=== PATIENT | female | born 1945 | race Caucasian/White ===

== ENCOUNTER 2021-04-14 05:14 | Observation (INO) ==
--- NOTE | 2021-03-16 14:48 | PAT Medication Instructions ---
Medication Instructions Date of Service March 16, 2021 Home Medications cholecalciferol (vitamin D3) 25 mcg (1,000 unit) capsule 25 mcg PO DAILY mecobalamin (vitamin B12) 1,000 mcg chewable tablet 1,000 mcg PO DAILY multivitamin 1 tab PO DAILY coQ10 (ubiquinol) 100 mg PO HS fluorouracil [Efudex] 1 applic TOPICAL DAILY PRN levothyroxine 12.5 mcg PO DAILY [id number] [Immune Support] 1 tab PO DAILY omega-3 fatty acids [[place] 3] 1,000 mg PO DAILY rosuvastatin 40 mg PO QPM zinc 1 tab PO DAILY STOP taking 2 weeks before surgery coQ10 (ubiquinol) 100 mg PO HS [id number] [Immune Support] 1 tab PO DAILY omega-3 fatty acids [[place] 3] 1,000 mg PO DAILY STOP taking 24 hours before surgery fluorouracil [Efudex] 1 applic TOPICAL DAILY PRN DO NOT take the morning of surgery cholecalciferol (vitamin D3) 25 mcg (1,000 unit) capsule 25 mcg PO DAILY mecobalamin (vitamin B12) 1,000 mcg chewable tablet 1,000 mcg PO DAILY multivitamin 1 tab PO DAILY zinc 1 tab PO DAILY Take morning of surgery With a small sip of water, OTHERWISE NOTHING TO EAT OR DRINK AFTER MIDNIGHT: levothyroxine 12.5 mcg PO DAILY Take evening before surgery rosuvastatin 40 mg PO QPM Other Notes If you have any questions please call us at [phone] or [phone] or [phone] or [phone]
--- NOTE | 2021-03-17 10:12 | Anesthesiology Consultation ---
Date of Service March 17, 2021 Assessment & Plan (1) Encounter for pre-operative examination: Chart Review Chart Review: Acceptable Risk for Surgery (pending cardio records from [place] (will attempt to get last cardio note, most recent carotid doppler and ECHO) and preop Covid testing results ) and Patient seen in Pre Admission Testing Pt also follows with cardio in [place], [place]- Dr Emely Forbes with [facility]. Will fax for last office note (preop risk assessment), ECHO, carotid doppler Per patent at PAT qing on 03/17/21= states Dr. Forbes felt patient is stable to proceed with surgery. Had ECHO in April 2019- demonstrated normal LV systolic function and no valve disease. If experiences atrial tachycardia at time of surgery- additional dose of beta anna could be given. Pt was to start on Metoprolol for extra heart beats but has not yet started medication- encouraged patient to discuss with cardio. (will attempt to get cardio note) Per PAT appointment on 03/17/2021, patient resides in [facility]. Local travel only. No known Covid infection past 90 days. Patient is vaccinated for Covid. No known Covid positive contacts or Covid related symptoms. Preop Covid testing scheduled 04/10/21= will await results. Educated on importance of self quarantining, social distancing and wearing mask in public both for the patient after Covid testing done Pt last seen by [facility] 02/18/21= Per cardiology note patient with history of mild nonobstructive carotid artery stenosis. Patient presents for routine cardiology appointment also follows with agricultural equipment sales manager in [place]. Patient considering right hip surgery in the future. Dyslipidemiabetter controlled on high intensity statin. Said he has been initiated by agricultural equipment sales manager in [place] to optimize LDL. Carotid artery stenosisasymptomaticmild nonobstructive per previous report. Palpitationschronic and stablenot overly bothersome to patient. BPacceptable in office. Murmurfaint systolic murmur heard on exam todaychronic per patienthad echo on 04/13/2019 demonstrating mild TR per prior agricultural equipment sales manager. Follow-up in 6 months. Teaching & Discussion Pre-Anesthesia Teaching/Discussion Notes: Instructed NPO after midnight before surgery,except medications with 15 cc of water. Medication instructions provided according to the PAT guidelines. History Surgery Operation Date: 04/14/21 08:50 Proposed Procedures p Right Total Hip Arthroplasty - Dae Ruiz MD Height/Weight Height: 5 ft 4 in Weight: 60.1 kg Allergies Allergy/AdvReac Type Severity Reaction Status Date / Time No Known Drug Allergies Allergy Verified 03/16/21 13:30 Medications Home Medications Medication Instructions Recorded Confirmed Last Taken cholecalciferol (vitamin D3) 25 25 mcg PO DAILY 07/25/20 03/16/21 Unknown mcg (1,000 unit) capsule mecobalamin (vitamin B12) 1,000 1,000 mcg PO DAILY 07/25/20 03/16/21 Unknown mcg chewable tablet multivitamin 1 tab PO DAILY 07/25/20 03/16/21 Unknown coQ10 (ubiquinol) 100 mg PO HS 03/16/21 03/16/21 Unknown fluorouracil [Efudex] 1 applic TOPICAL DAILY PRN 03/16/21 03/16/21 Unknown levothyroxine 12.5 mcg PO DAILY 03/16/21 03/16/21 Unknown [id number] 1 tab PO DAILY 03/16/21 03/16/21 Unknown [Immune Support] omega-3 fatty acids [[place] 3] 1,000 mg PO DAILY 03/16/21 03/16/21 Unknown rosuvastatin 40 mg PO QPM 03/16/21 03/16/21 Unknown zinc 1 tab PO DAILY 03/16/21 03/16/21 Unknown Past Medical History Medical History (Updated 03/17/21 @ 16:59 by Debbie Escalante PA-C) Cardiac murmur Faint systolic murmur--per Dr. Dyson. Per Dr. Dyson's note "Has had echo on 04/13/2019 demonstrating mild tricuspid regurgitation per prior agricultural equipment sales manager"---also following with agricultural equipment sales manager in [place] (Dr. Emely Forbes) Carotid artery stenosis Non obstructive per 02/18/21 Dr. Dyson note Herniated disc History of anesthesia reaction difficulty waking History of basal cell carcinoma (BCC) s/p removal - no other treatments needed Hyperlipidemia Hypothyroidism Nausea and vomiting after administration of anesthetic agent Sensorineural hearing loss (SNHL) of both ears Exercise / Class Metabolic Activity II 4-5 Yardwork/Stairs/Walk up hill (one flight of stairs - no chest pain or SOB) Past Family History Family History Mother Breast cancer Father Myocardial infarction Other No family history of adverse response to anesthesia Denies family history of Ovarian cancer Prostate cancer Colorectal cancer Past Surgical History Surgical History History of bilateral cataract extraction History of breast biopsy benign History of colonoscopy History of Mohs micrographic surgery for skin cancer History of wisdom tooth extraction S/P tonsillectomy Past Anesthesia History No Hx of Anesthesia Complications (with exception to slow to wake- no reintubation or ICU stay; PONV ) and No Family Hx of Anesthesia Complications History of PONV No Hx of Motion Sickness and History of PONV Social History Smoking Status: Never smoker Do You Dip or Chew Tobacco: No Hx Alcohol Use: Yes Alcohol type: wine alcohol intake frequency: holidays/special occasions only Hx Substance Use: No substance use type: does not use Review of Systems Occ palpitations Patient denies chest pain, shortness of breath, dyspnea on exertion, reflux, cough, wheezing. No hx of seizures, stroke, MT, apnea/snoring. No hx of blood clots or blood transfusions Physical Exam Vital Signs VITALS BP 131/80 P 68 TEMP 98.4 SP02 99% RESP 16 Constitutional no acute distress ENMT Mouth: no TMJ clicking Thyromental Distance: > or= 3.5 Finger Breadths (3.5) Mallampati Class: I Neck neck extension not limited Respiratory normal respiratory effort; no respiratory distress Auscultation: lungs clear to auscultation bilaterally; no wheezes Cardiovascular Rate/Rhythm: regular rate and regular rhythm Heart Sounds: no murmur Vessels: + carotid bruit (faint bruit bilaterally ) Musculoskeletal Spine: no pain with cervical ROM Extremities: extremities normal to inspection Psychiatric Orientation: alert Lab Results Anesthesia Preop Results Results Anesthesia Widget: WBC 7.30 K/uL (4.8-10.8) 03/17/21 Hgb 13.2 g/dL (12.0-16.0) 03/17/21 Hct 39.3 % (37-47) 03/17/21 Plt 270 K/uL (130-400) 03/17/21 Na 136 mmol/L (136-145) 03/17/21 K 4.9 mmol/L (3.5-5.1) 03/17/21 Cl 107 mmol/L (98-107) 03/17/21 CO2 25 mmol/L (21-32) 03/17/21 BUN 12 mg/dl (7-18) 03/17/21 Creat 0.61 mg/dl (0.6-1.2) 03/17/21 Glucose Level 106 mg/dl (70-99) H 03/17/21 PT 10.3 Seconds (9.0-12.0) 03/17/21 PTT 26.4 Seconds (21.0-31.0) 03/17/21 INR 1.0 (0.9-1.1) 03/17/21 Blood Type O Positive 03/17/21 Antibody Screen NEGATIVE 03/17/21 Testing Laboratory Results 02/26/2021 = UA: Hemolyzed trace urine blood, negative bacteria URINE CULTURE: No growth Electrocardiogram Date: 07/25/20 Sinus rhythm at 63 bpm Chest X-Ray Date: 03/17/21 Findings: + NAD Lung volumes are normal. A 1.3 cm calcified left lower lung nodule is benign. There is no pneumothorax or pleural effusion. Cardiac size is normal. Mediastinal contours are normal. There is no evidence for pulmonary edema.
--- NOTE | 2021-04-12 10:17 | History and Physical Report ---
DATE OF ADMISSION: 04/14/2021 CHIEF COMPLAINT: Persistent right hip and groin pain. HISTORY OF PRESENT ILLNESS: A 75-year-old female who presents for treatment of her right hip. She h as a fairly long history of right hip pain and discomfort, it has gradually gotten worse over time. She has been treated conservatively up in [place] where she used to live, was actually scheduled for amador rgery up there, but canceled for unclear reasons. She continued to be bothered by this hip pain. It has gradually progressed over the past 3 to 4 years. She has been through extensive conservative tr eatment including medicines, which provided fairly minimal relief. Apparently, her father is a physi katalina and ____, she is concerned about the anesthesia issues. She has difficulty doing a lot of activ ities. She cannot walk any long distances. Pain is mostly in her groin and thigh. She has a limite d walking tolerance. She would really like to have her hip fixed now. PAST MEDICAL HISTORY: 1. Elevated cholesterol. 2. Irregular heart palpitations. 3. Hypothyroidism. 4. Skin cancer. PAST SURGICAL HISTORY: Includes tonsillectomy. ALLERGIES: None. CURRENT MEDICATIONS: 1. Synthroid. 2. Rosuvastatin. SOCIAL HISTORY: Significant for a 75-year-old female. She is . She moved here from [place]. FAMILY HISTORY: Noncontributory. REVIEW OF SYSTEMS: Negative for diabetes, neurologic problem, vascular problem, or bleeding disorder s. No chest pain or shortness of breath. No history of DVT or PE. No known bleeding problems. PHYSICAL EXAMINATION: GENERAL: Shows a pleasant middle-aged female. Looks to be in pretty good health. HEENT: Benign. NECK: Supple, with no lymphadenopathy. LUNGS: Clear to auscultation. HEART: Has a regular rate and rhythm. ABDOMEN: Soft, nontender, nondistended. EXTREMITIES: Grossly neurovascularly intact except as follows: Examination of the right hip reveale d a patient who walks with a bit of a limp. She is about 0.5 cm to 1 cm short on this side compared to the left. She has stiffness with hip motion. I can internally rotate to neutral at best. This r e-creates pain. Negative straight leg raise. X-RAYS: X-rays of the right hip were reviewed. It shows advanced right hip DJD. She has complete l oss of superior joint space. She has got flattening of the femoral head. She has cystic changes on both sides of the joint. Fairly significant osteophytes around the femoral head. ASSESSMENT: A 75-year-old female with advanced right hip degenerative joint disease. She has failed conservative measures. She was actually scheduled for surgery elsewhere up in [place], but canceled f or unclear reasons. She would now like to have her hip fixed. PLAN: We are going to take her to the operating room and do right total hip replacement. The risks and benefits of this procedure were explained to the patient including but not limited to DVT, PE, de ath, infection, neurological injury, vascular injury, bleeding problem, pain, limited range of motion , stiffness, failure to relieve her symptoms, incomplete relief of symptoms, need for further surgery in the future, fracture, leg length inequality, nerve palsy, etc. The patient understands and charan es to proceed. Informed consent was obtained. I spent quite a bit of time answering questions for her. She is pretty apprehensive and certainly un derstandable. She did see the food service associate and has been cleared by cardiology. We will proceed with a right total hip replacement. Job ID: [id number]
[2021-04-14] MEDS ORDERED: TRANEXAMIC ACID 1,000 MG **IV Pre-op IV SCH (06:00)
[2021-04-14] MEDS ORDERED: GABAPENTIN 300 MG CAP PO SCH (06:00)
[2021-04-14] MEDS ORDERED: LR 60ML/HR IV SCH (06:00)
[2021-04-14] MEDS ORDERED: FAMOTIDINE 20 MG TAB PO SCH (06:00)
[2021-04-14] MEDS ORDERED: ACETAMINOPHEN 500 MG TAB PO SCH (06:00)
[2021-04-14] MEDS ORDERED: LR 500ML BOLUS, THEN 15ML/HR IV SCH (06:00)
[2021-04-14] MEDS ORDERED: ceFAZolin 2000MG 2,000 MG/15 ML SYR IV SCH (06:00)
[2021-04-14] MEDS ORDERED: BUPIVACAINE 0.5 % 5 MG/1 ML PF 10ML VIAL ONE (06:15)
[2021-04-14] MEDS ORDERED: EPINEPHrine INJ 1 MG/ML AMP ONE (06:38)
[2021-04-14] MEDS ORDERED: BUPIVACAINE 0.5 % 5 MG/1 ML MPF 30ML VIAL ONE (06:39)
[2021-04-14] MEDS ORDERED: MIDAZOLAM HCL 1 MG/ML 2ML VIAL ONE (06:42)
[2021-04-14] MEDS ORDERED: fentaNYL citrate 100 MCG/2 ML VIAL ONE (06:42)
[2021-04-14] MEDS ORDERED: MoRPHine SULFATE PF 1 MG/ML 10 ML AMP/VIAL ONE (06:44)
--- NOTE | 2021-04-14 06:57 | History & Physical Bridge Note ---
Date of Service April 14, 2021 History & Physical Bridge Note I have examined the patient, reviewed the History & Physical and in the interval since the performance of the History & Physical I have noted the following changes of clinical significance: no changes noted
[2021-04-14] MEDS ORDERED: ONDANSETRON INJ 2 MG/ML 2 ML VIAL IV PRN (07:02)
[2021-04-14] MEDS ORDERED: KETOROLAC 30 MG/ML VIAL IV PRN (07:02)
[2021-04-14] MEDS ORDERED: LACTATED RINGER'S 500 ML IV PRN (07:02)
[2021-04-14] MEDS ORDERED: NALOXONE HCL 0.4 MG/1 ML VIAL/CARP IV PRN ×2 (07:02→10:58)
[2021-04-14] MEDS ORDERED: PROMETHAZINE HCL 6.25 MG in SODIUM CHLORIDE 0.9% 50 ML IV PRN (07:02)
[2021-04-14] MEDS ORDERED: NALOXONE HCL 0.08 MG in SYRINGE 1.8 ML IV PRN (07:02)
[2021-04-14] MEDS ORDERED: diphenhydrAMINE 50 MG/ML VIAL IV PRN (07:02)
[2021-04-14] MEDS ORDERED: MoRPHine SULFATE PF 1 MG/ML 10 ML AMP/VIAL INT SPINAL ONE (07:02)
[2021-04-14] MEDS ORDERED: ePHEDrine sulfate 50 MG/ML AMP IV PRN (07:02)
[2021-04-14] MEDS ORDERED: NALBUPHINE HCL INJ 10 MG/ML AMP IV PRN (07:02)
[2021-04-14] MEDS ORDERED: MEPERIDINE HCL 25 MG/ML CARP/VIAL IV PRN (07:02)
[2021-04-14] MEDS ORDERED: NALOXONE HCL 1 MG in SODIUM CHLORIDE 0.9% 1000ML 1,000 ML IV PRN (07:02)
[2021-04-14] MEDS ORDERED: DC INTRASPINAL MORPHINE SCH (07:15)
[2021-04-14] MEDS ORDERED: SODIUM CHLORIDE 0.9% 1000ML 1,000 ML IV SCH (07:15)
[2021-04-14] MEDS ORDERED: NO NARCOTICS OR SEDATIVES SCH (07:15)
[2021-04-14] MEDS ORDERED: ONDANSETRON INJ 2 MG/ML 2 ML VIAL ONE (07:18)
[2021-04-14] MEDS ORDERED: ePHEDrine sulfate 50 MG/ML SYR ONE (08:15)
[2021-04-14] MEDS ORDERED: PHENYLEPHRINE 100MCG/ML 5ML SYR ONE (08:15)
--- NOTE | 2021-04-14 09:09 | Operative Report ---
Post Operative Report Pre & Post Diagnosis Operation Date: 04/14/21 07:00 Pre-Op Diagnosis: Right Hip Osteoarthritis Post-Op Diagnosis: Right Hip Osteoarthritis I identified the patient and participated in the time-out.: Yes Procedure Operation Date: 04/14/21 07:00 Actual Procedures p Uncemented Right Total Hip Arthroplasty(Right) - Dae Ruiz MD Surgeon Dae Ruiz MD Primary Care Provider Jorge, PAC Estimated Blood Loss 200 Findings Consistent with Post-Op Diagnosis Operative findings were advanced right hip DJD. She had a moderate-sized joint effusion with grade 4 [id number] disease of the femoral head and acetabulum. She had a moderate-sized anterior and medial acetabular osteophyte. Fluids 1700 cc. Specimens Right femoral head sent for pathology. Drains None. Anesthesia Type Spinal MAC Complications none Disposition Accompanied Patient To Recovery: Yes Indications Patient is a 75-year-old female has had a several year history of increasing right hip pain discomfort describes gotten worse over time. She is actually scheduled for hip replacement surgery elsewhere and then moved to this area and canceled. She been waiting for the Covid epidemic to be over. She now elect proceed with a total hip arthroplasty. She failed all conservative measures. Description of Procedure Operative implants consist of: 1. Biomet G7 size 50 mm acetabular shell. 2. 6.5 cancellous acetabular screws 135 mm length 1 to 20 mm length. 3. [place] hole nature photographer. 4. Highly cross-linked polyethylene liner with a 50 mm outer diameter 36 mm inner diameter. 5. DePuy Cor[place] size 11 KLA femoral stem 6. +5/36 mm ceramic articular ball. The patient was taken to the operating, identified, and placed on the operating table supine position but a contractors were properly padded. IV antibiotics tried by anesthesia team. A spinal anesthetic had been implemented holding area. Jones catheter was placed in a sterile fashion. The patient was then placed in the left lateral cubitus position. Rolls placed. Stulberg hip positioner was used for positioning. The right hip and leg were then prepped and draped in usual sterile fashion. Posterior lateral approach to the right hip was then performed through a curvilinear incision centered over the greater trochanter. Sharp dissection was carried through subcutaneous tissue down of the IT band gluteal fascia the IT band gluteal fascia incised longitudinally in line with skin incision. The underlying greater bursa was excised. The piriformis and external rotators were tagged and taken off the posterior aspect hip joint capsule. Great care was taken throughout the procedure protect the sciatic nerve at all times. Posterior capsulotomy was then performed leaving a large flap for later repair. Hip was internally rotated and dislocated. Femoral neck osteotomy cut was made with Final Cut about 10 mm above the lesser trochanter. Femoral head was removed and sent for pathology. The femur was retracted anteriorly. Attention drawn the acetabulum. The acetabular labrum was excised. The pulvinar fat was excised. Sequential reaming the acetabular was then performed again with size 43 and progressing up to 49. I did reamed just a little bit with a 50 reamer and then placed a 50 mm cup. We placed this in about 40 degrees lateral opening and 20 degrees of anteversion. It was fixed with two 6.5 cancellous acetabular screws. A trial liner was placed. An anterior osteophyte was removed. Attention drawn the femur. Proximal femur was entered with a cookie-cutter followed by canal finder. I then broached begin the size 8 and progressing up to 11. We got excellent fit and 11. I then trialed the hip and the +5 articular ball seem to recreate soft tissue tension appropriately and leg lengths are equal. Hip was stable in full extension and external rotation and flexion to 90 degrees internal rotation about [address] I elect to place these implants. All trial implants were removed. An apex hole nature photographer was placed. Highly cross-linked polyethylene liner was placed. A DePuy size 11 KLA femoral stem was impacted in position. +5/36 mm ceramic articular ball was placed. Hip was located once again found to be stable. Attention drawn toward closing. Nupathe wounds irrigated scope soft pulsatile lavage solution. I did inject locally with the 60 cc of half percent Marcaine with epinephrine. The posterior capsule and external rotators then repaired through drill holes in the posterior trochanter with #2 Tycron suture. The IT band gluteal fascia then closed in 1 PDS suture in running fashion the subcutaneous tissue was closed with 2 layers with a deep layer #1 Vicryl suture subcutaneous tissues with 2-0 Dexon suture in a buried interrupted fashion. Skin was closed skin jarret. Leg was then cleaned and dried and sterile dressing both Xeroform, 4 x 4's, sterile ABD pad and foam tape was applied. Patient then transferred to the recovery room in stable condition. Patient tolerated the procedure well and there were no complications. All needle and sponge counts were correct at the end the operation. Romario Noriega PA-C, my physician printing bindery assistant for the case, was present for the entire procedure. His assistance was required for proper patient positioning, prepping and draping, surgical exposure, retraction, performing the technical details of the operation, placement of the implants, closure of the wound, placement of the sterile bandage. I attest to the content of the Intraoperative Record and any orders documented therein. Any exceptions are noted below.
--- NOTE | 2021-04-14 09:23 | XRay Report ---
AP PELVIS, CROSSTABLE LATERAL RIGHT HIP History: Right total hip arthroplasty. Degenerative arthritis. Postop. FINDINGS: The patient is status post a right total hip arthroplasty. The hardware is intact. No fract ure or dislocation. Skin jarret are in place. IMPRESSION: Right total hip arthroplasty. No evidence for hardware complication ACT 112: Negative or not required by law. Electronically signed by: Jorge Luis Soriano M.D. 04/14/2021 9:22 AM
--- NOTE | 2021-04-14 10:17 | Anesthesiology Progress Note ---
Date of Service April 14, 2021 Anesthesia Post Procedure Vital Signs Vital Signs: Temp Pulse Pulse Resp BP Pulse Ox 04/14/21 10:10 67 18 105/52 L 100 04/14/21 10:00 68 20 97/52 L 100 04/14/21 09:50 67 20 102/51 L 93 04/14/21 09:40 74 20 108/57 L 93 04/14/21 09:30 72 18 102/51 L 93 04/14/21 09:20 73 25 H 95/48 L 95 04/14/21 09:10 68 14 93/48 L 99 04/14/21 09:00 70 14 100/51 L 100 04/14/21 08:53 36.0 C L 77 16 96/44 L 98 04/14/21 06:20 36.5 C 71 18 147/77 H 99 04/14/21 05:49 36.7 C 73 18 148/72 H 98 Transfer of Care Handoff Completed per policy Notes Mental Status: alert / awake / arousable Patient Amnestic to Procedure: Yes Nausea / Vomiting: adequately controlled Pain: adequately controlled Airway Patency, RR, SpO2: stable & adequate BP & HR: stable & adequate Hydration State: stable & adequate Anesthetic Complications: no major complications apparent
[2021-04-14] MEDS ORDERED: [UNRECOGNIZED DRUG - OTHER] PO SCH (10:58)
[2021-04-14] MEDS ORDERED: bisacodyL 10 MG SUPP PR PRN (10:58)
[2021-04-14] MEDS ORDERED: MAGNESIUM HYDROXIDE SUSP 30 ML UDC PO PRN (10:58)
[2021-04-14] MEDS ORDERED: NON-FORMULARY MEDICATION (Zinc Tablet,Chewable) PO SCH (10:58)
[2021-04-14] MEDS ORDERED: MULTIVITAMIN TAB PO SCH (10:58)
[2021-04-14] MEDS ORDERED: ALUMINUM/MAGNESIUM SUSP 30 ML UDC PO PRN (10:58)
[2021-04-14] MEDS ORDERED: traMADol HCL 50 MG TABLET PO PRN (10:58)
[2021-04-14] MEDS: CHOLECALCIFEROL 1,000 UNITS 25 MCG TAB PO SCH (12:12)
[2021-04-14] MEDS: SODIUM CHLORIDE 0.9% 1000ML 1,000 ML IV SCH ×2 (12:12→22:37)
[2021-04-14] MEDS: OMEGA-3 (PURIFIED FISH OIL) 1 GM CAP PO SCH (12:12)
[2021-04-14] MEDS: CYANOCOBALAMIN 500 MCG TABLET (VITAMIN B-12) PO SCH (12:12)
[2021-04-14] MEDS: ACETAMINOPHEN 500 MG TAB PO SCH ×2 (15:13→21:05)
[2021-04-14] MEDS ORDERED: TRANEXAMIC ACID / 0.7% NACL 1,000 MG/100 ML BAG IV SCH (16:00)
[2021-04-14] MEDS: ceFAZolin 1000MG 1,000 MG/7.5 ML SYR IV SCH ×2 (17:28→23:14)
[2021-04-14] MEDS: ASCORBIC ACID 500 MG TAB PO SCH (17:29)
[2021-04-14] MEDS: DOCUSATE SODIUM 100 MG CAP PO SCH (20:15)
[2021-04-14] MEDS: ASPIRIN 81 MG ECTAB PO SCH (20:16)
[2021-04-14] MEDS ORDERED: ROSUVASTATIN CALCIUM 20 MG TAB PO SCH (21:00)
[2021-04-14] MEDS ORDERED: SENNA 8.6 MG TAB PO SCH (21:00)
[2021-04-14] MEDS ORDERED: NON-FORMULARY MEDICATION (Coq10 (Ubiquinol) 100 mg Capsule) PO SCH (21:00)
[2021-04-15] MEDS ORDERED: METOCLOPRAMIDE HCL INJ 5 MG/ML 2 ML VIAL IV PRN (01:03)
[2021-04-15] MEDS ORDERED: ONDANSETRON INJ 2 MG/ML 2 ML VIAL IV PRN (01:03)
[2021-04-15] MEDS ORDERED: HYDROmorphone INJ 0.5 MG/0.5 ML SYR IV PRN (01:03)
[2021-04-15] MEDS ORDERED: LEVOTHYROXINE SODIUM 25 MCG TABLET PO SCH (06:30)
[2021-04-15] MEDS: KETOROLAC TROMETHAMINE 15 MG/ML VIAL IV SCH ×2 (06:36→11:14)
[2021-04-15] MEDS: ACETAMINOPHEN 500 MG TAB PO SCH ×2 (06:36→14:59)
[2021-04-15 06:52] LABS: Basophils # (auto) 0.02 K/uL (0-0.2); Basophils % (auto) 0.3 %; Eosinophils # (auto) 0.06 K/uL (0-0.5); Eosinophils % (auto) 0.8 %; Hematocrit (blood only) 32.1 % (37-47); Hemoglobin 10.5 g/dL (12.0-16.0); Immature Granulocytes # (auto) 0.01 K/uL (0.00-0.02); Immature Granulocytes % (auto) 0.1 %; Mean Corpuscular Hemoglobin 30.7 pg (25-34); Mean Corpuscular Hgb Conc 32.7 g/dL (32-36); Mean Corpuscular Volume 93.9 fL (80-100); Mean Platelet Volume 9.1 fL (7.4-10.4); Monocytes # (auto) 0.59 K/uL (0.11-0.59); Monocytes % (auto) 8.1 %; Neutrophils % (auto) 79.7 %; Platelet Count 201 K/uL (130-400); RDW Coefficient of Variation 13.8 % (11.5-14.5); RDW Standard Deviation 47.8 fL (36.4-46.3); Red Blood Count 3.42 M/uL (4.2-5.4); White Blood Count 7.28 K/uL (4.8-10.8)
[2021-04-15 07:29] LABS: BUN Creatinine Ratio 20.7 (10-20); Calcium 8.1 mg/dl (8.5-10.1); Creatinine Clr Calc Pharmacy 110.9 ml/min; Est GFR (African American) 120.8 ml/min; Est GFR (Non-African American) 104.2 ml/min; Potassium 4.3 mmol/L (3.5-5.1)
[2021-04-15] MEDS ORDERED: dexAMETHasone 10 MG in SYRINGE 0 ML IV SCH (08:00)
[2021-04-15] MEDS: ASCORBIC ACID 500 MG TAB PO SCH (08:52)
[2021-04-15] MEDS: ASPIRIN 81 MG ECTAB PO SCH (08:53)
[2021-04-15] MEDS: CHOLECALCIFEROL 1,000 UNITS 25 MCG TAB PO SCH (08:53)
[2021-04-15] MEDS: CYANOCOBALAMIN 500 MCG TABLET (VITAMIN B-12) PO SCH (08:53)
[2021-04-15] MEDS: DOCUSATE SODIUM 100 MG CAP PO SCH (08:54)
[2021-04-15] MEDS: OMEGA-3 (PURIFIED FISH OIL) 1 GM CAP PO SCH (08:54)
[2021-04-15] MEDS ORDERED: MULTIVITAMIN TAB PO SCH (09:00)
--- NOTE | 2021-04-15 12:25 | Progress Notes ---
DATE OF SERVICE: 04/15/2021 SUBJECTIVE: A 75-year-old female postop day 1 from a right total hip replacement. She is doing well . She is sitting up in a chair, reading a book. She looks comfortable. Denies any chest pain or sh ortness of breath. Her hip pain is well controlled. Therapy went well. OBJECTIVE: VITAL SIGNS: Temperature 36.8. Vital signs are stable. PHYSICAL EXAMINATION: GENERAL: Shows a pleasant middle-aged female. She is sitting up in her bedside chair, reading a davis k, looks comfortable. LUNGS: Clear to auscultation. HEART: Regular rate and rhythm. ABDOMEN: Soft, nontender, nondistended. EXTREMITIES: Grossly neurovascularly intact except as follows: Examination of the right hip reveals leg lengths to be equal. Dressing is clean, dry and intact. Thigh is soft and supple. Hip is loca shanika. She is neurologically intact. She can dorsiflex and plantarflex her foot appropriately. LABORATORY DATA: Hemoglobin is 10.5. Hematocrit 32.1. Electrolytes are stable. ASSESSMENT: A 75-year-old female postoperative day 1 from right hip replacement, doing well. Pain c ontrolled. Hip is located. Therapy went well. She is neurologically intact. PLAN: 1. DVT prophylaxis includes thigh-high TEDs, SCDs, and aspirin twice a day. 2. PT, OT, weightbear as tolerated. Right total hip protocol. 3. Pain control, doing well with current pain regimen. 4. Disposition: We plan to discharge her home with some home health likely later today if she does okay ____ along with voiding. Job ID: [id number]
== END 2021-04-15 16:24 | disposition home health service (06) ==
LOC: 3E 05:14 → ASU 05:14